=== PATIENT | female | born 1970 | race Caucasian/White ===

== ENCOUNTER 2017-11-05 15:13 | Emergency (ER) | payer BC ==
[~2017-11-05] VITALS: Ht 168.9 cm; Wt 77.2 kg
[~2017-11-05 15:13] MED LIST: AMOX875T PO; VIST50CA PO
[2017-11-05 15:15] VITALS: BP 116/65; PULSE 108; RESP 18; TEMP 99.8; O2SAT 98
[2017-11-05] MEDS ORDERED: DEXAMETHASONE SOD PHOS 20 MG/5 ML VIAL IM ONE (16:30)
[2017-11-05] MEDS ORDERED: AMOXICILLIN 875 MG TAB PO ONE (16:30)
[2017-11-05] MEDS ORDERED: AMOX875T PO (16:42)
[2017-11-05] MEDS ORDERED: IBUP1TAB7 PO (16:42)
--- NOTE | 2017-11-05 16:43 | PD ---
HPI Chief Complaint: ENT Complaint Time Seen by Provider: 16:04 Travel History International Travel<30 days: No Contact w/Intl Traveler<30days: No Traveled to known affect area: No History of Present Illness HPI Patient is a 47-year-old female presenting to emergency for evaluation of fevers , body aches, sore throat. She states her symptoms started 2 days ago. Her son has similar symptoms and was just diagnosed with strep throat. She denies any nausea, vomiting, abdominal pain, cough. Patient states that her throat pain is 9 out of 10, she denies any dysphasia or drooling. Additionally patient states that her daughter was diagnosed with pinworms, she had taken 2 doses of [id number] and warm treatment and then was given a prescription for Albenza from urgent care. Patient continues to believe she has pinworms despite any symptoms. She is requesting an evaluation for this. PFSH Past Medical History Medical History: Denies Significant Hx Diminished Hearing: No Migraines: Yes ?: Not LMP: OCTOBER 2017 : 5 Para: 3 Miscarriage: 2 : 1 Social History Alcohol Use: Yes (OCC) Tobacco Use: No Substance Use: No Allergies-Medications (Allergen,Severity, Reaction): Coded Allergies: No Known Allergies (Verified Adverse Reaction, Unknown, 11/05/17) Reported Meds & Prescriptions Reported Meds & Active Scripts Active Amoxicillin 875 Mg Tab 875 Mg PO BID 10 Days Vistaril (Hydroxyzine Pamoate) 50 Mg Cap 50 Mg PO QID PRN Review of Systems Except as stated in HPI: all other systems reviewed are Neg General / Constitutional: Positive: Fever, Chills Eyes: No: Blurred Vision HENT: Positive: Sore Throat, Congestion, No: Headaches, Neck Pain, Earache Cardiovascular: No: Chest Pain or Discomfort Respiratory: No: Shortness of Breath Gastrointestinal: No: Nausea, Vomiting, Abdominal Pain Musculoskeletal: Positive: Myalgias Neurologic: No: Weakness, Dizziness, Syncope Physical Exam Narrative GENERAL: Well-developed, well-nourished, alert female. Resting comfortably in no acute distress. SKIN: Warm and dry. HEAD: Atraumatic. Normocephalic. EYES: Pupils equal and round. No scleral icterus. No injection or drainage. ENT: No nasal bleeding or discharge. Mucous membranes pink and moist. Bilateral tonsillar hypertrophy, erythema noted to tonsils and posterior pharynx with significant exudate NECK: Trachea midline. No JVD. CARDIOVASCULAR: Regular rate and rhythm. RESPIRATORY: No accessory muscle use. Clear to auscultation. Breath sounds equal bilaterally. GASTROINTESTINAL: Abdomen soft, non-tender, nondistended. Hepatic and splenic margins not palpable. No obvious pinworms around rectum MUSCULOSKELETAL: Extremities without clubbing, cyanosis, or edema. No obvious deformities. NEUROLOGICAL: Awake and alert. No obvious cranial nerve deficits. Motor grossly within normal limits. Five out of 5 muscle strength in the arms and legs. Normal speech. PSYCHIATRIC: Appropriate mood and affect; insight and judgment normal. Data Data Last Documented VS Vital Signs Date Time Temp Pulse Resp B/P (MAP) Pulse Ox O2 Delivery O2 Flow Rate FiO2 11/05/17 15:15 99.8 108 18 116/65 (82) 98 Orders Orders Dexamethasone Inj (Decadron Inj) (11/05/17 16:30) Amoxicillin (Trimox) (11/05/17 16:30) [facility] Medical Decision Making Medical Screen Exam Complete: Yes Emergency Medical Condition: Yes Interpretation(s) Vital Signs Date Time Temp Pulse Resp B/P (MAP) Pulse Ox O2 Delivery O2 Flow Rate FiO2 11/05/17 15:15 99.8 108 18 116/65 (82) 98 Differential Diagnosis Viral URI versus strep pharyngitis versus influenza versus other Narrative Course Patient is a 47-year-old female presenting with 2 days of worsening body aches, sore throat, fever which is subjective. Patient's son was diagnosed with strep pharyngitis today in pediatrics. At this time patient be given dexamethasone and amoxicillin. She will be given a prescription for the same to complete full course at home. She was encouraged to increase oral fluid intake, complete full course of antibiotics as prescribed, return to emergency department for any new or worsening symptoms. Patient verbalized understanding of instructions. Patient is stable for discharge. Furthermore she was encouraged to follow-up with her primary doctor regarding possible pinworms. Stool was sent for ova and parasite. Patient will be notified if positive. Diagnosis Primary Impression: Pharyngitis Qualified Codes: J02.9 - Acute pharyngitis, unspecified Additional Impression: Viral syndrome Referrals: Primary Care Physician 3 days Patient Instructions: General Instructions, Pharyngitis (ED), Pinworm Infection (ED), Viral Syndrome (ED) Additional Instructions: Follow-up with your primary doctor Complete full course of antibiotics as prescribed Increased fluid intake Follow-up with your primary doctor regarding pinworms Return to emergency department for any new or worsening symptoms Med/Other Pt SpecificInfo: Prescription(s) given Scripts Ibuprofen (Ibuprofen) 800 Mg Tab 800 MG PO Q6HR Y for PAIN, #40 TAB 0 Refills Prov: Lorena Niño 11/05/17 Amoxicillin (Amoxicillin) 875 Mg Tab 875 MG PO BID for Infection, #20 TAB 0 Refills Prov: Lorena Niño 11/05/17 Disposition: 01 DISCHARGE HOME Condition: Stable Lorena Niño Nov 05, 2017 16:43
[2017-11-05] MEDS ORDERED: IBUPROFEN 800 MG TAB PO ONE (17:15)
== END 2017-11-05 17:54 | disposition home or self-care (01) ==
LOC: NEPE 15:13
DX: B34.9 Viral infection, unspecified (principal)
CPT/HCPCS: 87328; 87329; 96372; 99284; J1100

== ENCOUNTER 2018-05-02 18:44 | Emergency (ER) | payer BC ==
[~2018-05-02 18:44] MED LIST changes: +IBUP1TAB7 PO
[2018-05-02 19:06] VITALS: BP 119/64; PULSE 102; RESP 15; TEMP 99; O2SAT 99
--- NOTE | 2018-05-02 20:13 | PD ---
HPI Chief Complaint: GI Complaint Time Seen by Provider: 19:59 Travel History International Travel<30 days: No Contact w/Intl Traveler<30days: No Traveled to known affect area: No History of Present Illness HPI 47-year-old white female presents emergency department with complaints of lower abdominal/rectal pelvic cramping. She states that she feels as if she has to stool but only passes small amounts of stool and gas. She took MiraLAX at the recommendation of Dr. Lozada her GI specialist. She states that she had a colonoscopy this past year which only showed internal hemorrhoids. She states that the pain is cramping in nature moderate intensity. Comes and goes and wavelike fashion. She denies any associated fever chills. No nausea vomiting. No upper abdominal pain. No dysuria frequency. She has noticed some blood in her stool but she has chronic internal/external hemorrhoids and this is not unusual for her. Patient also states that she has been under a severe amount of stress with a large amount of social issues at home. She is overwhelmed with anxiety. [facility] Past Medical History Narrative Medical Chronic rectal bleeding with internal/external hemorrhoids, anxiety Diminished Hearing: No Migraines: Yes Tetanus Vaccination: < 5 Years ?: Not : 5 Para: 3 Miscarriage: 2 : 1 Dilation and Curettage (D&C): Yes Past Surgical History Surgical History: No Previous Surgery Social History Alcohol Use: Yes ([facility]) Tobacco Use: No Substance Use: No Allergies-Medications (Allergen,Severity, Reaction): Coded Allergies: No Known Allergies (Verified Adverse Reaction, Unknown, 05/02/18) Reported Meds & Prescriptions Reported Meds & Active Scripts Active No Active Prescriptions or Reported Medications Review of Systems Except as stated in HPI: all other systems reviewed are Neg Physical Exam Narrative GENERAL: Well-developed, well-nourished in no apparent distress. Nontoxic appearing. Appears extremely anxious. HEAD: Normocephalic, atraumatic. EYES: Pupils equal round and reactive. Extraocular motions intact. No scleral icterus. No injection or drainage. ENT: Nose clear. Throat without erythema, tonsillar hypertrophy or exudate. Uvula midline. Airway patent. NECK: Trachea midline. Supple, nontender, moves head freely. No central bony tenderness or spasm. CARDIOVASCULAR: Regular rate and rhythm without murmurs, gallops, or rubs. RESPIRATORY: Clear to auscultation. Breath sounds equal bilaterally. No wheezes , rales, or rhonchi. GASTROINTESTINAL: Abdomen soft, non-tender, nondistended. No hepato-splenomegaly , or palpable masses. No guarding. EXTREMITIES: No clubbing, cyanosis, or edema. No joint tenderness. BACK: Nontender without deformity. No flank tenderness. NEUROLOGICAL: Awake, alert and oriented x 3 .Cranial nerves grossly intact. Motor and sensory grossly within normal limits. Normal speech. Data Data Last Documented VS Vital Signs Date Time Temp Pulse Resp B/P (MAP) Pulse Ox O2 Delivery O2 Flow Rate FiO2 05/02/18 19:06 99.0 102 15 119/64 (82) 99 Orders Orders Complete Blood Count With Diff (05/02/18 20:07) Comprehensive Metabolic Panel (05/02/18 20:07) Lipase (05/02/18 20:07) Urinalysis - C+S If Indicated (05/02/18 20:07) Ct Abd/Pel W Iv Contrast(Rout) (05/02/18 20:07) Iv Access Insert/Monitor (05/02/18 20:07) Ed Urine Pregnancytest Poc (05/02/18 20:07) Sodium Chlor 0.9% 1000 Ml Inj (Ns 1000 M (05/02/18 20:15) Diphenhydramine Inj (Benadryl Inj) (05/02/18 20:15) Metoclopramide Inj (Reglan Inj) (05/02/18 20:15) Hyoscyamine (Levsin) (05/02/18 20:15) [facility] Medical Decision Making Medical Screen Exam Complete: Yes Emergency Medical Condition: Yes Medical Record Reviewed: Yes Differential Diagnosis Differential diagnosis: Anxiety, gastritis, colitis, diverticulitis, UTI Narrative Course IV access is obtained. Patient was given liter bolus normal saline, Ativan 1 mg IV, medical 50 mg IV, Reglan 10 mg IV, and Levsin 0.25 mg sublingual. We will obtain routine laboratory tests including CBC, chemistry, lipase, UA and CT of the abdomen rule out acute infectious process. Scripts No Active Prescriptions or Reported Meds Condition: Stable Riccardo Hurtado May 02, 2018 20:13
[2018-05-02] MEDS ORDERED: diphenhydrAMINE HCL 50 MG/ML VIAL IV PUSH ONE (20:15)
[2018-05-02] MEDS ORDERED: SODIUM CHLOR 0.9% 1000 ML INJ 1,000 ML IV ONE (20:15)
[2018-05-02] MEDS ORDERED: HYOSCYAMINE 0.125 MG TAB PO ONE (20:15)
[2018-05-02] MEDS ORDERED: METOCLOPRAMIDE HCL 10 MG/2 ML VIAL IV PUSH ONE (20:15)
[2018-05-02 21:31] LABS: BASOPHIL % 0.4 % (0.0-2.0); EOSINOPHIL # 0.1 TH/MM3 (0-0.4); EOSINOPHIL % 0.6 % (0.0-4.0); HEMATOCRIT 36.9 % (35.0-46.0); HEMOGLOBIN 12.4 GM/DL (11.6-15.3); LYMPH % 13.4 % (9.0-44.0); LYMPHOCYTE # 1.3 TH/MM3 (1.0-4.8); MEAN CELL VOLUME 84.4 FL (80.0-100.0); MEAN CORPUSCULAR HEMOGLOBIN 28.3 PG (27.0-34.0); MEAN CORPUSCULAR HGB CONC 33.5 % (32.0-36.0); MEAN PLATELET VOLUME 8.1 FL (7.0-11.0); MONO % 5.9 % (0.0-8.0); MONOCYTE # 0.6 TH/MM3 (0-0.9); NEUT % 79.7 % (16.0-70.0); PLATELET COUNT 197 TH/MM3 (150-450); RED BLOOD COUNT 4.37 MIL/MM3 (4.00-5.30); RED CELL DISTRIBUTION WIDTH 13.8 % (11.6-17.2); WHITE BLOOD COUNT 10.1 TH/MM3 (4.0-11.0)
[2018-05-02 21:39] LABS: BILIRUBIN, URINE NEG (NEG); BLOOD, URINE NEG (NEG); GLUCOSE,URINE NEG (NEG); KETONE, URINE NEG (NEG); NITRITE,URINE NEG (NEG); PH, URINE 5.5 (5.0-8.5); SQUAMOUS EPITHELIAL CELL URINE 4 /hpf (0-5); URINE COLOR LIGHT-YELLOW (YELLW/STRAW); URINE LEUKOCYTE ESTERASE SMALL (NEG)
[2018-05-02 21:53] LABS: ALBUMIN 3.7 GM/DL (3.4-5.0); AST (GOT) 17 U/L (15-37); BICARBONATE 22.7 MEQ/L (21.0-32.0); BLOOD UREA NITROGEN 7 MG/DL (7-18); CALCIUM 8.8 MG/DL (8.5-10.1); CHLORIDE 106 MEQ/L (98-107); GLOMERULAR FILTRATION RATE 90 ML/MIN (>89); GLUCOSE,RANDOM 91 MG/DL (74-106); SODIUM (NA) 140 MEQ/L (136-145)
[2018-05-02 21:54] LABS: ALT (GPT) 30 U/L (10-53)
[2018-05-02 21:57] LABS: ALKALINE PHOSPHATASE 84 U/L (45-117); TOTAL BILIRUBIN ADULT 0.4 MG/DL (0.2-1.0); TOTAL PROTEIN 7.4 GM/DL (6.4-8.2)
[2018-05-02] MEDS ORDERED: IOHEXOL 350 MG/ML 10 ML VIAL (for RAD DIAG) IVCONTRAST ONE (22:08)
--- NOTE | 2018-05-02 22:25 | RADRPT ---
EXAM DATE: 05/02/2018 10:08 PM EDT AGE/SEX: 47 years / Female INDICATIONS: Lower abdominal pain. CLINICAL DATA: This is the patient's initial encounter. Patient reports that signs and symptoms have been present for 2 days and indicates a pain score of 8/10. MEDICAL/SURGICAL HISTORY: None. None. ORAL CONTRAST: No oral contrast ingested. RADIATION DOSE: 6.84 CTDI (mGy) COMPARISON: No prior exams available for comparison. TECHNIQUE: Multiple contiguous axial images were obtained through the abdomen and pelvis following b olus infusion of 100 ml Omnipaque 350 (iohexol) nonionic water-soluble contrast as a single exam do se. No oral contrast ingested. Using automated exposure control and adjustment of the mA and/or kV a ccording to patient size, the radiation dose was kept as low as reasonably achievable to obtain optim al diagnostic quality images. FINDINGS: Lower Lungs: The visualized lower lungs are clear. Liver: The liver has a homogeneous density without space-occupying lesion. There is no dilation of th e biliary tree. Spleen: Mildly enlarged without focal lesion. Pancreas: Unremarkable without mass or calcification. Kidneys: Normal in size and shape. No evidence of mass or hydronephrosis. Adrenal Glands: Unremarkable. Aorta: The aorta and proximal iliac vessels are grossly unremarkable without aneurysmal dilation. Bowel/Mesentery: The distal colon is notable for concentric wall thickening and mild surrounding haz y induration, particularly involving the distal sigmoid and proximal rectum. There are diverticula pr esent. The more proximal colon and the small bowel structures are unremarkable. Abdominal Wall: Intact. Retroperitoneum: No evidence of adenopathy in the retrocrural, para-aortic, or deep pelvic regions. Bladder: Contours are smooth. Reproductive Organs: No abnormal masses or calcifications seen. Inguinal: The inguinal region is unremarkable without evidence of adenopathy. Bony Structures: Unremarkable. CONCLUSION: 1. Appearance consistent with distal colitis or diverticulitis. No evidence of complication at prese nt. Electronically signed by: Americo Gage MD 05/02/2018 10:24 PM EDT
[2018-05-02] MEDS ORDERED: PROCHLORPERAZINE INJ 10 MG/2 ML VIAL IV PUSH ONE (22:30)
[2018-05-02] MEDS ORDERED: MORPHINE SULFATE 4 MG/ML INJ IV PUSH ONE (22:30)
[2018-05-02] MEDS ORDERED: METR-1 PO (22:38)
[2018-05-02] MEDS ORDERED: CIPR-9 PO (22:38)
[2018-05-02] MEDS ORDERED: NORC5TAB PO (22:38)
[2018-05-02] MEDS ORDERED: ACETAMINOPHEN/HYDROcodone 325 MG/5 MG TAB PO ONE (22:45)
[2018-05-02] MEDS ORDERED: metroNIDAZOLE 500 MG TAB PO ONE (22:45)
[2018-05-02] MEDS ORDERED: CIPROFLOXACIN 500 MG TAB PO ONE (22:45)
== END 2018-05-03 01:09 | disposition home or self-care (01) ==
LOC: NEPD 18:44
DX: K52.9 Noninfective gastroenteritis and colitis, unspecified (principal); K64.4 Residual hemorrhoidal skin tags; F41.9 Anxiety disorder, unspecified
CPT/HCPCS: 74177; 80053; 81001; 83690; 84703; 85025; 96361; 96374; 96375; 99284; J1200; J2765; J7030; Q9967